=== PATIENT | female | born 1950 | race Caucasian/White ===

== ENCOUNTER 2020-12-19 20:30 | Inpatient (IN) | payer OTHER ==
--- NOTE | 2020-12-19 23:35 | RAD REPORT ---
EXAM DESCRIPTION: RAD - Chest Pa And Lat (2 Views) - 12/19/2020 9:34 pm CLINICAL HISTORY: DYSPNEA COMPARISON: None TECHNIQUE: Frontal and lateral views of the chest were obtained. FINDINGS: The lungs are normal volume. Interstitial markings are prominent, greater than expected. T here is some minimal alveolar opacification as well. Mild cardiomegaly is present. Fullness of each hilum noted. No pneumothorax present. Minimal pleural effusions suspected. No acute bony finding not ed. No aortic abnormality. IMPRESSION: Bilateral interstitial and some alveolar opacities are present in the setting of mild ca rdiomegaly. Mild failure or volume overload suspected.
[2020-12-20 01:18] LABS: Absolute Lymphocytes (CBC) 1.6 K/uL (0.7-4.9); Basophils % 1.6 % (0-1.3); Hematocrit 30.2 % (36.0-45.0); Lymphocytes % 26.3 % (15.3-44.8); MPV 8.3 fL (7.6-11.3); RBC Red Blood Cell Count 3.97 M/uL (3.86-4.86)
[2020-12-20 01:31] LABS: Protime INR 1.94
[2020-12-20 01:42] LABS: Albumin 3.3 g/dL (3.4-5.0); Bilirubin Direct 0.2 mg/dL (0-0.2); Bilirubin Total 0.5 mg/dL (0.2-1.0); Magnesium 2.4 mg/dL (1.8-2.4); Potassium 3.9 mmol/L (3.5-5.1); Protein, Total 7.6 g/dL (6.4-8.2); Troponin (Emerg Dept Use Only) 0.02 ng/mL (0.0-0.045)
--- NOTE | 2020-12-20 02:16 | ER ---
Nurse's Notes [facility] Name: Lila Lauren Age: 70 yrs Sex: Female : 1950 Arrival Date: 12/19/2020 Time: 20:39 Bed 25 Private MD: Diagnosis: Unspecified combined systolic (congestive) and diastolic (congestive) heart failure Presentation: 12/19 20:49 Chief complaint: Patient states: I have asthma, and I have been short of breath for 2 ca1 months now. But today, I just can't catch my breath. I can't walk to the kitchen, restroom even. I almost pass out today. I'm not wheezing like I normally do. As soon as I sit and put my CPAP on, I also feel better. Coronavirus screen: Client denies travel out of the [place] in the last 14 days. shortness of breath, Client presents with at least one sign or symptom that may indicate coronavirus-19. Standard/surgical mask placed on the client. Provider contacted for isolation considerations. Ebola Screen: Patient negative for fever greater than or equal to 101.5 degrees Fahrenheit, and additional compatible Ebola Virus Disease symptoms Patient denies exposure to infectious person. Patient denies travel to an Ebola-affected area in the 21 days before illness onset. No symptoms or risks identified at this time. Initial Sepsis Screen: Does the patient meet any 2 criteria? No. Patient's initial sepsis screen is negative. Does the patient have a suspected source of infection? No. Patient's initial sepsis screen is negative. Risk Assessment: Do you want to hurt yourself or someone else? Patient reports no desire to harm self or others. Onset of symptoms was December 19, 2020. 20:49 Method Of Arrival: Ambulatory ca1 20:49 Acuity: MARCUS 3 ca1 Historical: - Allergies: 20:52 No Known Allergies; ca1 - Home Meds: 20:52 None [Active]; ca1 - PMHx: 20:52 Lupus; Asthma; Gout; Hypertensive disorder; Hypercholesterolemia; Hypothyroidism; ca1 Atrial fibrillation; - Immunization history:: Client reports having NOT received the Covid vaccine. - Social history:: Smoking status: Patient denies any tobacco usage or history of. Screenin/06 00:45 Abuse screen: Denies threats or abuse. Nutritional screening: No deficits noted. bb Tuberculosis screening: No symptoms or risk factors identified. Fall Risk None identified. Assessment: 00:45 General: Appears in no apparent distress. obese, Behavior is calm, cooperative. Pain: bb Denies pain. Neuro: Level of Consciousness is awake, alert, obeys commands, Oriented to person, place, time, situation. Cardiovascular: Capillary refill < 3 seconds Patient's skin is warm and dry. Respiratory: Reports shortness of breath Respiratory effort is labored. GI: No signs and/or symptoms were reported involving the gastrointestinal system. Derm: Skin is fragile, is thin, Skin is dry, Skin is normal, Skin temperature is warm. Musculoskeletal: Circulation, motion, and sensation intact. Vital Signs: 12/19 20:49 BP 146 / 67; Pulse 61; Resp 18 S; Temp 97.6(TE); Pulse Ox 97% on R/A; Weight 130.18 kg ca1 (R); Height 5 ft. 3 in. (160.02 cm) (R); Pain 0/10; 12/20 00:41 BP 151 / 90; Pulse 60; Resp 20; Temp 97.7; Pulse Ox 99% on R/A; mw2 12/19 20:49 Body Mass Index 50.84 (130.18 kg, 160.02 cm) ca1 ED Course: 08 20:39 Patient arrived in ED. cf2 20:52 Triage completed. ca1 20:52 Arm band placed on right wrist. ca1 21:26 Chest Pa And Lat (2 Views) XRAY In Process Unspecified. EDMS 12/20 00:34 Kenneth Plaza MD is Attending Physician. 7 00:45 Patient has correct armband on for positive identification. Call light in reach. bb 00:45 No provider procedures requiring assistance completed. Patient admitted, IV remains in bb place. 02:04 Paradise Carvalho RN is Primary Nurse. bb 02:15 Omar Kim DO is Hospitalizing Provider. 7 02:30 Inserted saline lock: 20 gauge in left antecubital area, using aseptic technique. bb 10:29 Inserted saline lock: 24 gauge in left hand, using aseptic technique. mb4 Administered Medications: 02:30 Drug: Lasix (furosemide) 20 mg Route: IVP; Site: left antecubital; bb 02:44 Follow up: Response: No adverse reaction bb Outcome: 02:16 Decision to Hospitalize by Provider. 7 02:43 Condition: stable bb 02:43 Instructed on the need for admit. 17:10 Patient left the ED. iw Signatures: Dispatcher [employer] Paradise Navarro RN RN bb Rosey Webber RN RN iw Marii Arita mw2 Tricia Swartz mb4 Janny Walker RN RN ca1 Gabrielle Lee 2 Kenneth Plaza MD MD 7 Corrections: (The following items were deleted from the chart) 12/19 20:53 20:52 PMHx: Lupus erythematosus; ca1 ca1 12/20 03:03 00:45 Respiratory: Respiratory effort is even, unlabored, jody vera
--- NOTE | 2020-12-20 02:16 | EDPHYS ---
Physician Documentation [facility] Name: Lila Lauren Age: 70 yrs Sex: Female : 1950 Arrival Date: 12/19/2020 Time: 20:39 Bed 25 Private MD: ED Physician Kenneth Plaza HPI: 12/20 00:35 This 70 yrs old Female presents to ER via Ambulatory with complaints of mh7 Asthma Exacerbation. 00:35 The patient has shortness of breath with light activity. mh7 00:35 Onset: The symptoms/episode began/occurred 2 day(s) ago. Duration: The symptoms are mh7 intermittent, with no pattern. The patient's shortness of breath is aggravated by exertion, light activity. The patient's shortness of breath is alleviated by rest. Associated signs and symptoms: Pertinent positives: chest pain, productive cough, Pertinent negatives: non-productive cough, diaphoresis, dizziness, fever, hemoptysis, loss of consciousness, nausea, numbness in extremities, visual changes, vomiting. Severity of symptoms: At their worst the symptoms were moderate last night, in the emergency department the symptoms are unchanged. Historical: - Allergies: 12/19 20:52 No Known Allergies; ca1 - Home Meds: 20:52 None [Active]; ca1 - PMHx: 20:52 Lupus; Asthma; Gout; Hypertensive disorder; Hypercholesterolemia; Hypothyroidism; ca1 Atrial fibrillation; - Immunization history:: Client reports having NOT received the Covid vaccine. - Social history:: Smoking status: Patient denies any tobacco usage or history of. ROS: 12/20 00:35 Constitutional: Negative for fever, chills, and weight loss, Eyes: Negative for injury, mh7 pain, redness, and discharge, ENT: Negative for injury, pain, and discharge, Neck: Negative for injury, pain, and swelling, Abdomen/GI: Negative for abdominal pain, nausea, vomiting, diarrhea, and constipation, Back: Negative for injury and pain, : Negative for injury, bleeding, discharge, and swelling, MS/Extremity: Negative for injury and deformity, Skin: Negative for injury, rash, and discoloration, Neuro: Negative for headache, weakness, numbness, tingling, and seizure, Psych: Negative for depression, anxiety, suicide ideation, homicidal ideation, and hallucinations, Allergy/Immunology: Negative for hives, rash, and allergies, Endocrine: Negative for neck swelling, polydipsia, polyuria, polyphagia, and marked weight changes, Hematologic/Lymphatic: Negative for swollen nodes, abnormal bleeding, and unusual bruising. Exam: 00:35 Constitutional: This is a well developed, well nourished patient who is awake, alert, mh7 and in no acute distress. Head/Face: Normocephalic, atraumatic. Eyes: Pupils equal round and reactive to light, extra-ocular motions intact. Lids and lashes normal. Conjunctiva and sclera are non-icteric and not injected. Cornea within normal limits. Periorbital areas with no swelling, redness, or edema. Neck: Trachea midline, no thyromegaly or masses palpated, and no cervical lymphadenopathy. Supple, full range of motion without nuchal rigidity, or vertebral point tenderness. No Meningismus. Chest/axilla: Normal chest wall appearance and motion. Nontender with no deformity. No lesions are appreciated. Cardiovascular: Regular rate and rhythm with a normal S1 and S2. No gallops, murmurs, or rubs. Normal PMI, no JVD. No pulse deficits. 00:35 Abdomen/GI: Soft, non-tender, with normal bowel sounds. No distension or tympany. No guarding or rebound. No evidence of tenderness throughout. Back: No spinal tenderness. No costovertebral tenderness. Full range of motion. Skin: Warm, dry with normal turgor. Normal color with no rashes, no lesions, and no evidence of cellulitis. MS/ Extremity: Pulses equal, no cyanosis. Neurovascular intact. Full, normal range of motion. Neuro: Awake and alert, GCS 15, oriented to person, place, time, and situation. Cranial nerves II-XII grossly intact. Motor strength 5/5 in all extremities. Sensory grossly intact. Cerebellar exam normal. Normal gait. Psych: Awake, alert, with orientation to person, place and time. Behavior, mood, and affect are within normal limits. 00:35 Respiratory: the patient does not display signs of respiratory distress, Respirations: normal, Breath sounds: rales, that are mild, rhonchi, that are mild, are scattered, Respiratory rate: 20 Vital Signs: 12/19 20:49 BP 146 / 67; Pulse 61; Resp 18 S; Temp 97.6(TE); Pulse Ox 97% on R/A; Weight 130.18 kg ca1 (R); Height 5 ft. 3 in. (160.02 cm) (R); Pain 0/10; 12/20 00:41 BP 151 / 90; Pulse 60; Resp 20; Temp 97.7; Pulse Ox 99% on R/A; mw2 12/19 20:49 Body Mass Index 50.84 (130.18 kg, 160.02 cm) ca1 MDM: 02:14 Differential diagnosis: Anemia Anxiety Reaction asthma, Bronchitis CHF exacerbation, mh7 Chronic Obstructive Pulmonary Disease Myocardial Infarction pneumonia, Psychogenic pulmonary edema, reactive airway disease. Data reviewed: vital signs, nurses notes, EMS record, lab test result(s), cardiac enzymes, CBC, electrolytes, EKG, radiologic studies, plain films. Data interpreted: Pulse oximetry: on room air is 99 %. Interpretation: normal. Counseling: I had a detailed discussion with the patient and/or guardian regarding: the historical points, exam findings, and any diagnostic results supporting the discharge/admit diagnosis, the presence of at least one elevated blood pressure reading (>120/80) during this emergency department visit, lab results, radiology results, the need for further work-up and treatment in the hospital. Response to treatment: the patient's symptoms have mildly improved after treatment. 02:16 Patient medically screened. [facility] 12/19 20:54 Order name: Flu; Complete Time: 00:36 ca1 12/19 22:49 Order name: SARS-COV-2 RT PCR; Complete Time: 00:36 EDMS 12/20 00:46 Order name: Basic Metabolic Panel; Complete Time: 01:54 [facility] 12/20 00:46 Order name: CBC with Diff; Complete Time: 01:54 [facility] 12/20 00:46 Order name: LFT's; Complete Time: 01:54 [facility] 12/20 00:46 Order name: Magnesium; Complete Time: :54 [facility] 12/20 00:46 Order name: NT PRO-BNP; Complete Time: 01:44 [facility] 12/20 00:46 Order name: PT-INR; Complete Time: 01:54 [facility] 12/20 00:46 Order name: Troponin (emerg Dept Use Only); Complete Time: 01:54 [facility] 12/20 04:51 Order name: Urine Dipstick-Ancillary [facility] 12/20 09:59 Order name: Troponin I [facility] 12/20 09:59 Order name: Lipid Profile [facility] 12/20 09:59 Order name: T4 Free [facility] 12/19 20:54 Order name: Chest Pa And Lat (2 Views) XRAY; Complete Time: 00:36 ca1 12/20 00:46 Order name: EKG; Complete Time: 00:47 [facility] 12/20 00:46 Order name: Cardiac monitoring; Complete Time: 04:51 [facility] 12/20 00:46 Order name: EKG - Nurse/Tech; Complete Time: 02:02 [facility] 12/20 00:46 Order name: IV Saline Lock; Complete Time: 02:05 [facility] 12/20 00:46 Order name: Labs collected and sent; Complete Time: 02:05 [facility] 12/20 00:46 Order name: O2 Per Protocol; Complete Time: 00:55 [facility] 12/20 00:46 Order name: O2 Sat Monitoring; Complete Time: 00:55 [facility] 12/20 09:59 Order name: Thyroid Stimulating Hormone [facility] 12/20 09:59 Order name: Transferrin Sat/Iron Binding [facility] 12/20 09:59 Order name: Ferritin [facility] 12/20 14:12 Order name: Troponin I [facility] Administered Medications: 02:30 Drug: Lasix (furosemide) 20 mg Route: IVP; Site: left antecubital; bb 02:44 Follow up: Response: No adverse reaction bb Disposition Summary: 12/20/20 02:16 Hospitalization Ordered Hospitalization Status: Inpatient Admission [facility] Provider: Omar Kim Fely Condition: Stable [facility] Problem: new [facility] Symptoms: have improved [facility] Bed/Room Type: Standard [facility] Location: Telemetry/MedSurg (Inpatient)(12/20/20 13:57) aa5 Room Assignment: 222(12/20/20 13:57) aa5 Diagnosis - Unspecified combined systolic (congestive) and diastolic (congestive) heart failure [facility] Forms: - Medication Reconciliation Form [facility] - SBAR form [facility] Signatures: Dispatcher [employer] [facility] Paradise Carvalho RN RN bb Mary Eric RN RN aa5 Jules Mathew, COUNTER MOLDER-C COUNTER MOLDER-Cla1 Amina Araujo RN RN cg Janny Walker RN RN ca1 Kenneth Plaza MD MD [facility] Corrections: (The following items were deleted from the chart) 12/19 20:53 20:52 PMHx: Lupus erythematosus; ca1 ca1 21:52 20:55 CORONAVIRUS+MRCHAR.BRZ ordered. EDMS [facility] 12/20 01:05 01:02 The patient has shortness of breath with light activity, [place] [id number] 01:05 01:02 Onset: The symptoms/episode began/occurred 2 day(s) ago, [place] [address] 01:05 01:02 Duration: The symptoms are intermittent, with no pattern, [place] [address] 01:05 01:02 The patient's shortness of breath is aggravated by exertion, light activity, is [facility] alleviated by sitting up, [facility] 04:23 02:16 Telemetry/MedSurg (Inpatient) [facility] cg 04:23 02:16 [facility] cg 13:57 04:23 [facility] ER HOLD cg aa5 13:57 04:23 ERHOLD- cg aa5
[2020-12-20] MEDS ORDERED: FUROSEMIDE 20 MG/ 2ML VIAL ONE ×2 (02:44→10:26)
--- NOTE | 2020-12-20 03:08 | P.HP ---
Certification for Inpatient Patient admitted to: Observation With expected LOS: <2 Midnights Patient will require the following post-hospital care: None Practitioner: I am a practitioner with admitting privileges, knowledge of patient current condition, hospital course, and medical plan of care. Services: Services provided to patient in accordance with Admission requirements found in Title 42 Section 412.3 of the Code of Federal Regulations Patient History Date of Service: 12/20/20 Primary Care Provider: None Reason for admission: New onset CHF History of Present Illness: 70-year-old female with history of atrial fibrillation on chronic anticoagulation therapy, lupus, hypothyroidism, hypertension, hyperlipidemia, asthma/obstructive sleep apnea presents emergency [place] for dyspnea on exertion. Patient reports increasing dyspnea on exertion over the course of the last month or so. Patient was examined in the emergency department, labs were significant for hemoglobin 9.4 hematocrit 30.2 MCV 76.1 BUN 19 GFR 45 alk phos 184 BNP 2867 Covid test negative chest x-ray significant for mild CHF pattern. Patient without previously diagnosed CHF. Patient given Lasix in the emergency department ED provider wishes to admit for further evaluation and management of new onset CHF. - Past Medical/Surgical History -: Atrial fibrillation on chronic anticoagulation therapy -: Hypertension -: Hyperlipidemia -: Lupus -: Asthma/BENNIE -: Bilateral hip/knee surgery -: Elbow surgery -: Bilateral cataract surgery -: Cholecystectomy Psychosocial/ Personal History: Patient lives at home alone, retired - Family History Mother -: Hypertension Brother -: Heart disease - Social History Smoking Status: Never smoker Alcohol use: No CD- Drugs: No Caffeine use: Yes Place of Residence: Home Review of Systems 10-point ROS is otherwise unremarkable Respiratory: Cough, Shortness of Breath, SOB with Excertion Physical Examination - Physical Exam General: Alert, In no apparent distress, Oriented x3 HEENT: Atraumatic, PERRLA, EOMI Neck: Supple, 2+ carotid pulse no bruit, No LAD, Without JVD or thyroid abnormality Respiratory: Clear to auscultation bilaterally, Normal air movement, Crackles/rales Cardiovascular: Regular rate/rhythm, Normal S1 S2 Gastrointestinal: Normal bowel sounds, No tenderness Musculoskeletal: No tenderness Integumentary: No rashes Neurological: Normal speech, Normal strength at 5/5 x4 extr, Normal tone, Normal affect - Studies Laboratory Data (last 24 hrs) 12/20/20 01:03: PT 22.5 H, INR 1.94 12/20/20 01:03: WBC 6.00, Hgb 9.4 L, Hct 30.2 L, Plt Count 203 12/20/20 01:03: Sodium 140, Potassium 3.9, BUN 19 H, Creatinine 1.19, Glucose 90, Magnesium 2.4, Total Bilirubin 0.5, AST 25, ALT 25, Alkaline Phosphatase 184 H Microbiology Data (last 24 hrs): 12/19/20 20:54 Nasopharnyx Influenza Type A Antigen Screen - Final 12/19/20 20:54 Nasopharnyx Influenza Type B Antigen Screen - Final Assessment and Plan - Plan Assessment: Dyspnea secondary to new onset CHFunknown EF Atrial fibrillation on chronic evaluation therapy Hypertension Hyperlipidemia Hypothyroidism Asthma/BENNIE Lupus Plan: Dyspnea secondary to new onset CHFunknown EF: Continue with Lasix 20 mg IV twice daily, 1500 cc/day flu restriction, daily weights. Echocardiogram ordered cardiology consulted. Anticipate clinical improvement over the course of the next 24 to 48 hours. Patient without primary care doctor, will need recommendation for new PCP/cardiology on discharge. Atrial fibrillation on chronic evaluation therapy: Continue Eliquis, carvedilol. Monitor on telemetry. Stable. Hypertension: Home medications continued adjust as necessary Hyperlipidemia: Home medications continued adjust as necessary Hypothyroidism:Home medications continued adjust as necessary Asthma/BENNIE: Stable without expiratory wheezing at this time. Patient reports that she does use CPAP at home for sleep. Lupus: Currently off of her medications. DVT PPX: Continue Eliquis Code status: Full Discharge Plan: Home Plan to discharge in: 24 Hours - Advance Directives Does patient have a Living Will: No Does patient have a Durable POA for Healthcare: No - Code Status/Comfort Care Code Status Assessed: Yes (Full code) Critical Care: No Time Spent Managing Pts Care (In Minutes): 55
[2020-12-20 04:50] LABS: Urine Blood Negative (Negative); Urine Glucose Negative (Negative); Urine Protein Negative (Negative); Urine Specific Gravity 1.015 (1.005-1.030)
--- NOTE | 2020-12-20 06:27 | P.PN ---
Subjective Date of Service: 12/20/20 Primary Care Provider: None Chief Complaint: New onset CHF Subjective: Other (Patient stable. Currently on 4 L per nasal cannula) Physical Examination - Studies Laboratory Data (last 24 hrs) 12/20/20 01:03: PT 22.5 H, INR 1.94 12/20/20 01:03: WBC 6.00, Hgb 9.4 L, Hct 30.2 L, Plt Count 203 12/20/20 01:03: Sodium 140, Potassium 3.9, BUN 19 H, Creatinine 1.19, Glucose 90, Magnesium 2.4, Total Bilirubin 0.5, AST 25, ALT 25, Alkaline Phosphatase 184 H Microbiology Data (last 24 hrs): 12/19/20 20:54 Nasopharnyx Influenza Type A Antigen Screen - Final 12/19/20 20:54 Nasopharnyx Influenza Type B Antigen Screen - Final Assessment & Plan Discharge Plan: Home (With home health and physical therapy) Plan to discharge in: 48 Hours Physician Review Additional Text: Covid: Negative Initial Chest x-ray: COMPARISON: None TECHNIQUE: Frontal and lateral views of the chest were obtained. FINDINGS: The lungs are normal volume. Interstitial markings are prominent, greater than expected. There is some minimal alveolar opacification as well. Mild cardiomegaly is present. Fullness of each hilum noted. No pneumothorax present. Minimal pleural effusions suspected. No acute bony finding noted. No aortic abnormality. IMPRESSION: Bilateral interstitial and some alveolar opacities are present in the setting of mild cardiomegaly. Mild failure or volume overload suspected. Physical exam: General: Alert, In no apparent distress, Oriented x3 HEENT: Atraumatic, PERRLA, EOMI Neck: Supple, 2+ carotid pulse no bruit, No LAD, Without JVD or thyroid abnormality Respiratory: Decreased to the bases. Currently on 4 L per nasal cannula Cardiovascular: Regular rate/rhythm, Normal S1 S2 Gastrointestinal: Normal bowel sounds, No tenderness Musculoskeletal: No tenderness Integumentary: No rashes Neurological: Normal speech, Normal strength at 5/5 x4 extr, Normal tone, Normal affect Impression: Dyspnea secondary to new onset acute CHFunknown EF Atrial fibrillation on chronic evaluation therapy Hypertension Hyperlipidemia Hypothyroidism Asthma/BENNIE Lupus Plan: Dyspnea secondary to new onset acute CHFunknown EF: Will continue with Lasix 20 mg IV twice daily. Continue 1500 cc/day fluid restriction. Continue carvedilol. Will adjust medication. Will add lisinopril. Echocardiogram ordered. Case discussed with cardiology. Continue with current treatment plan. Likely home with home oxygen tomorrow. Will check to see if the patient will require home health and physical therapy at discharge. Patient needs a PCP in the area. Will consult social service to help with this. Atrial fibrillation on chronic evaluation therapy: Continue Eliquis. Will adjust carvedilol to twice daily. Hypertension: Continue carvedilol. Will add lisinopril Hyperlipidemia: Continue medication Hypothyroidism: Continue home medication Asthma/BENNIE: Stable without expiratory wheezing at this time. Patient reports that she does use CPAP at home for sleep. Lupus: Currently off of her medications. DVT PPX: Continue Eliquis Code status: Full Discharge Plan: Home with oxygen Time Spent Managing Pts Care (In Minutes): 55
[2020-12-20] MEDS ORDERED: ACETAMINOPHEN 500 MG TAB PO PRN (07:03)
[2020-12-20] MEDS ORDERED: ONDANSETRON 4 MG/2 ML VIAL IV PRN (07:03)
[2020-12-20] MEDS ORDERED: carvediloL 25 MG TAB PO SCH ×2 (07:03→21:00)
[2020-12-20 09:59] LABS: Ferritin 17.8 ng/mL (8-388); Thyroid Stimulating Hormone 1.45 uIU/mL (0.360-3.740); Troponin I 0.02 ng/mL (0.0-0.045)
[2020-12-20] MEDS: FUROSEMIDE 20 MG/ 2ML VIAL IV SCH ×2 (10:06→20:00)
[2020-12-20] MEDS: ASPIRIN EC 81 MG TAB PO SCH (10:07)
[2020-12-20] MEDS: APIXABAN 5 MG TABLET PO SCH ×2 (10:07→21:17)
[2020-12-20] MEDS: PANTOPRAZOLE 40MG TABLET PO SCH (10:07)
[2020-12-20] MEDS: ISOSORBIDE MONO SR 30 MG TAB PO SCH (10:09)
[2020-12-20] MEDS ORDERED: PANTOPRAZOLE 40MG TABLET PO ONE (10:26)
[2020-12-20] MEDS ORDERED: APIXABAN 5 MG TABLET ONE (10:27)
[2020-12-20] MEDS ORDERED: ASPIRIN EC 81 MG TAB PO ONE (10:27)
--- NOTE | 2020-12-20 10:49 | EKG ---
Test Date: 2020-12-20 Test Time: 01:25:18 Vice President Of Product Marketing: CLEMENT MEASUREMENT RESULTS: Intervals: Rate: 60 LA: QRSD: 138 QT: 496 QTc: 496 [place]: P: 91 LA: QRS: -47 T: 96 INTERPRETIVE STATEMENTS: Atrial flutter with 4:1 AV conduction Right bundle branch block Left anterior fascicular block Bifascicular block Left ventricular hypertrophy with repolarization abnormality Abnormal ECG No previous ECG available for comparison Electronically Signed On 12-20-20 10:48:06 CDT by Shimon Nguyen
[2020-12-20] MEDS: allopurinoL 100 MG TAB PO SCH (12:00)
[2020-12-20] MEDS: carvediloL 25 MG TAB PO SCH ×2 (20:00→21:17)
[2020-12-20] MEDS: DULOXETINE 30 MG CAP PO SCH (21:17)
[2020-12-21 05:45] LABS: Absolute Lymphocytes (CBC) 1.3 K/uL (0.7-4.9); Basophils % 1.8 % (0-1.3); Hematocrit 27.6 % (36.0-45.0); Lymphocytes % 26.5 % (15.3-44.8); MPV 8.1 fL (7.6-11.3)
[2020-12-21 06:02] LABS: Albumin 2.9 g/dL (3.4-5.0); Bilirubin Total 0.4 mg/dL (0.2-1.0); Potassium 3.8 mmol/L (3.5-5.1); Protein, Total 6.7 g/dL (6.4-8.2)
[2020-12-21] MEDS: PANTOPRAZOLE 40MG TABLET PO SCH ×2 (06:28→09:04)
[2020-12-21] MEDS: LEVOTHYROXINE SOD 0.075 MG TAB PO SCH ×2 (06:28→09:03)
[2020-12-21] MEDS ORDERED: LEVOTHYROXINE SOD 0.125 MG TAB PO SCH (06:30)
[2020-12-21 06:39] VITALS: BMI 45.8
--- NOTE | 2020-12-21 08:43 | RAD REPORT ---
EXAM DESCRIPTION: RAD - Chest Single View - 12/21/2020 6:38 am CLINICAL HISTORY: Follow-up CHF COMPARISON: Chest Pa And Lat (2 Views) dated 12/19/2020 FINDINGS: Diffuse prominence of the pulmonary interstitium. This is increased since 12/19/2020. Card iomegaly.No acute osseous abnormality. No significant pleural effusions or pneumothorax. IMPRESSION: Mild pulmonary edema which is increased since 12/19/2020.
[2020-12-21] MEDS ORDERED: lisinopriL 5 MG TAB PO SCH (09:00)
[2020-12-21] MEDS ORDERED: HOME MED 1 EA UNK (Omeprazole [Prilosec] 40 MG Capsule.Dr) PO SCH (09:00)
[2020-12-21] MEDS ORDERED: POTASSIUM CL SA 10 MEQ TAB PO ONE (09:00)
[2020-12-21] MEDS: carvediloL 25 MG TAB PO SCH (09:01)
[2020-12-21] MEDS: ASPIRIN EC 81 MG TAB PO SCH (09:01)
[2020-12-21] MEDS: DULOXETINE 30 MG CAP PO SCH (09:02)
[2020-12-21] MEDS: APIXABAN 5 MG TABLET PO SCH (09:02)
[2020-12-21] MEDS: FUROSEMIDE 20 MG/ 2ML VIAL IV SCH (09:03)
[2020-12-21] MEDS: allopurinoL 100 MG TAB PO SCH (09:03)
[2020-12-21] MEDS: ISOSORBIDE MONO SR 30 MG TAB PO SCH (09:03)
--- NOTE | 2020-12-21 10:56 | P.DS ---
Admission Date: 12/20/20 Discharge Date: 12/21/20 Primary Care Provider: New to the area Disposition: ROUTINE DISCHARGE Discharge Condition: GOOD Reason for Admission: New onset CHF Consultations: Cardiology-Dr. Nguyen Procedures: Covid: Negative Initial Chest x-ray: COMPARISON: None TECHNIQUE: Frontal and lateral views of the chest were obtained. FINDINGS: The lungs are normal volume. Interstitial markings are prominent, greater than expected. There is some minimal alveolar opacification as well. Mild cardiomegaly is present. Fullness of each hilum noted. No pneumothorax present. Minimal pleural effusions suspected. No acute bony finding noted. No aortic abnormality. IMPRESSION: Bilateral interstitial and some alveolar opacities are present in the setting of mild cardiomegaly. Mild failure or volume overload suspected. ECHO: Normal EF, aortic stenosis noted. Medical problem list: Hypoxia, dyspnea secondary to acute diastolic CHF with aortic stenosis Atrial fibrillation on chronic evaluation therapy Hypertension Hypothyroidism Asthma Obstructive sleep apnea Lupus Anemia of chronic disease with iron deficiency GERD Gout Brief History of Present Illness: 70-year-old female with history of atrial fibrillation on chronic anticoagulation therapy, lupus, hypothyroidism, hypertension, hyperlipidemia, asthma/obstructive sleep apnea presented to the emergency room with dyspnea with exertion. Patient found to be hypoxic. BNP elevated. Covid test negative. Chest x-ray showed CHF pattern. Patient started on Lasix. Patient admitted for further evaluation and treatment. Hospital Course: Patient presented with hypoxia, dyspnea secondary to acute diastolic CHF. Patient was admitted for treatment. Patient responded well to IV Lasix and fluid restriction. Patient was seen and evaluated by cardiology. Echocardiogram shows normal ejection fraction with some aortic stenosis. Patient has done well. At discharge patient without significant shortness of breath. Patient remains on oxygen. Patient will continue with oxygen to maintain sats above 93%. Patient currently on 1 L per nasal cannula. At discharge the patient will continue with a 1500 cc/day fluid restriction and low-salt diet. She is to monitor her weight daily. At discharge she will continue with Lasix 40 mg daily. If her weight increases by more than 5 pounds adjustments in her medication may be required. This can be done with the help of her PCP or suspender maker. Patient will also continue with carvedilol 25 mg 1 pill twice daily. New medication includes lisinopril 5 mg daily. Recommend follow-up with cardiology in 1 week to follow-up this hospitalization and continue her care. Patient plans to establish care with a PCP in the area to follow-up this hospitalization and further address her medical problems. to recheck labBMP in 1 week to monitor her progress. Patient with history of atrial fibrillation on chronic anticoagulation therapy and CAD. At discharge she will continue with aspirin 81 mg daily, Imdur 15 mg daily and Eliquis 5 mg 1 pill twice daily. Recommend to follow-up with cardiology as directed. Patient with hypertension. Blood pressure medications have been adjusted during the course of her stay. New medication includes lisinopril. At discharge she will continue with carvedilol 25 mg 1 pill twice daily and lisinopril 5 mg daily. Recommend to maintain blood pressure less than 130/80. Further dismay can be done by her PCP or cardiology. Patient with hypothyroidism. At discharge she will continue with her medication levothyroxine 150 mcg daily. Recommend to recheck TSH and free T4 in 6 to 8 weeks to monitor her progress. Patient with GERD. At discharge she will continue with Protonix 40 mg daily. This will replace Prilosec. Recommend GI evaluation as an outpatient especially in light of her anemia. Patient with lupus. Recommend to establish care with rheumatology in the area to further address. We will continue with her medications of Cymbalta 30 mg 1 pill twice daily Patient with obstructive sleep apnea. Patient will continue with CPAP at night. Patient with anemia chronic disease with iron deficiency anemia. At discharge she will continue with iron supplementation 325 mg 1 pill twice daily. She may continue with stool softener as needed. Recommend to recheck labCBC in 1 to 2 weeks to monitor her progress. Recommend GI evaluation as an outpatient to further address. Patient with history of gout. At discharge we will continue with allopurinol 100 mg daily. Vital Signs/Physical Exam: Temp Pulse Resp BP Pulse Ox 98.9 F 83 16 105/57 L 94 12/21/20 08:00 12/21/20 08:00 12/21/20 08:00 12/21/20 08:00 12/21/20 08:00 General: Alert, In no apparent distress, Oriented x3, Cooperative HEENT: Atraumatic Neck: Supple Respiratory: Clear to auscultation bilaterally, Normal air movement Cardiovascular: Normal pulses, Regular rate/rhythm Gastrointestinal: Normal bowel sounds, No tenderness, No masses, No rebound, No guarding Musculoskeletal: No erythema, No tenderness, No warmth Integumentary: No tenderness/swelling Neurological: Normal speech, Normal strength at 5/5 x4 extr, Normal tone, Normal affect Laboratory Data at Discharge: WBC 4.80 K/uL (4.3-10.9) D 12/21/20 05:33 Hgb 8.4 g/dL (12.0-15.0) L 12/21/20 05:33 Hct 27.6 % (36.0-45.0) L 12/21/20 05:33 Plt Count 175 K/uL (152-406) 12/21/20 05:33 PT 22.5 SECONDS (9.5-12.5) H 12/20/20 01:03 INR 1.94 12/20/20 01:03 Sodium 143 mmol/L (136-145) 12/21/20 05:33 Potassium 3.8 mmol/L (3.5-5.1) 12/21/20 05:33 BUN 21 mg/dL (7-18) H 12/21/20 05:33 Creatinine 1.13 mg/dL (0.55-1.3) 12/21/20 05:33 Glucose 88 mg/dL (74-106) 12/21/20 05:33 Magnesium 2.0 mg/dL (1.8-2.4) 12/21/20 05:33 Total Bilirubin 0.4 mg/dL (0.2-1.0) 12/21/20 05:33 AST 20 U/L (15-37) 12/21/20 05:33 ALT 22 U/L (12-78) 12/21/20 05:33 Alkaline Phosphatase 151 U/L (45-117) H 12/21/20 05:33 Troponin I 0.03 ng/mL (0.0-0.045) 12/20/20 13:30 Triglycerides 70 mg/dL (<150) 12/20/20 08:47 Cholesterol 144 mg/dL (<200) 12/20/20 08:47 HDL Cholesterol 51 mg/dL (40-60) 12/20/20 08:47 Cholesterol/HDL Ratio 2.82 12/20/20 08:47 Home Medications: Albuterol Neb [Proventil 0.083% Neb Soln] 2.5 mg IH Q8H PRN 12/20/20 Allopurinol 100 mg PO DAILY 12/20/20 Apixaban [Eliquis] 1 tab PO BID 12/20/20 Aspirin [Aspirin EC 81 MG] 1 tab PO DAILY 12/20/20 Carvedilol [Coreg] 25 mg PO BID 12/20/20 Duloxetine HCl 1 cap PO BID 12/20/20 Isosorbide Mononitrate [Isosorbide Mononitrate ER] 0.5 tab PO DAILY 12/20/20 Levothyroxine [Synthroid*] 150 mcg PO [id number] 12/20/20 Ferrous Sulfate [Ferrous Sulfate*] 325 mg PO BID #60 tab 12/21/20 Furosemide [Lasix] 40 mg PO DAILY #30 tab 12/21/20 Pantoprazole [Protonix Tab*] 40 mg PO DAILYAC #30 tab 12/21/20 lisinopriL [Prinivil*] 5 mg PO DAILY #30 tab 12/21/20 New Medications: Ferrous Sulfate [Ferrous Sulfate*] 325 mg PO BID #60 tab Furosemide [Lasix] 40 mg PO DAILY #30 tab lisinopriL [Prinivil*] 5 mg PO DAILY #30 tab Pantoprazole [Protonix Tab*] 40 mg PO DAILYAC #30 tab Physician Discharge Instructions: Patient presented with hypoxia, dyspnea secondary to acute diastolic CHF. Patient was admitted for treatment. Patient responded well to IV Lasix and fluid restriction. Patient was seen and evaluated by cardiology. Echocardiogram shows normal ejection fraction with some aortic stenosis. Patient has done well. At discharge patient without significant shortness of breath. Patient remains on oxygen. Patient will continue with oxygen to maintain sats above 93%. Patient currently on 1 L per nasal cannula. At discharge the patient will continue with a 1500 cc/day fluid restriction and low-salt diet. She is to monitor her weight daily. At discharge she will continue with Lasix 40 mg daily. If her weight increases by more than 5 pounds adjustments in her medication may be required. This can be done with the help of her PCP or suspender maker. Patient will also continue with carvedilol 25 mg 1 pill twice daily. New medication includes lisinopril 5 mg daily. Recommend follow-up with cardiology in 1 week to follow-up this hospitalization and continue her care. Patient plans to establish care with a PCP in the area to follow-up this hospitalization and further address her medical problems. to recheck labBMP in 1 week to monitor her progress. Patient with history of atrial fibrillation on chronic anticoagulation therapy and CAD. At discharge she will continue with aspirin 81 mg daily, Imdur 15 mg daily and Eliquis 5 mg 1 pill twice daily. Recommend to follow-up with cardiocedric pruitt as directed. Patient with hypertension. Blood pressure medications have been adjusted during the course of her stay. New medication includes lisinopril. At discharge she will continue with carvedilol 25 mg 1 pill twice daily and lisinopril 5 mg daily. Recommend to maintain blood pressure less than 130/80. Further dismay can be done by her PCP or cardiology. Patient with hypothyroidism. At discharge she will continue with her medication levothyroxine 150 mcg daily. Recommend to recheck TSH and free T4 in 6 to 8 weeks to monitor her progress. Patient with GERD. At discharge she will continue with Protonix 40 mg daily. This will replace Prilosec. Recommend GI evaluation as an outpatient especially in light of her anemia. Patient with lupus. Recommend to establish care with rheumatology in the area to further address. We will continue with her medications of Cymbalta 30 mg 1 pill twice daily Patient with obstructive sleep apnea. Patient will continue with CPAP at night. Patient with anemia chronic disease with iron deficiency anemia. At discharge she will continue with iron supplementation 325 mg 1 pill twice daily. She may continue with stool softener as needed. Recommend to recheck labCBC in 1 to 2 weeks to monitor her progress. Recommend GI evaluation as an outpatient to further address. Patient with history of gout. At discharge we will continue with allopurinol 100 mg daily. Diet: AHA Activity: Ad len Followup: NONE,NONE [Primary Care Provider] - Time spent managing pt's care (in minutes): 55
[2020-12-21 12:00] VITALS: O2SAT 94
[2020-12-21 13:10] VITALS: BP 145/52; TEMP 97
[2020-12-21] MEDS ORDERED: FERROUS SULFATE 325 MG TAB PO SCH (21:00)
[2020-12-22] MEDS ORDERED: DOCUSATE NA 100 MG CAP PO SCH (09:00)
--- NOTE | 2020-12-22 09:36 | CON ---
Reason For Consultation: Congestive heart failure. History Of Present Illness: Ms. Lauren is a 70-year-old woman who came in with shortness of breath. Symptoms have been going on for a few days. She had atypical chest pain. She had a productive coug h. No nausea, vomiting, diaphoresis, PND, orthopnea, pedal edema, palpitations, or syncope. She den ied any fever or chills. Allergies: NONE. Medications At Home: None. Past Medical History: Includes lupus, asthma, gout, hypertension, hyperlipidemia, hypothyroidism, an d paroxysmal atrial fibrillation. Review of Systems: Negative. Social History: Negative. Family History: Negative. Physical Examination: Vital Signs: She was in sinus rhythm. O2 saturation was 97% on room air. Blood pressure was 146/67 . HEENT: Negative. Neck: Supple without any bruit, lymphadenopathy, JVD, or thyromegaly. Chest: Clear to auscultation and percussion. Cardiac: Revealed a regular rhythm and rate. No murmurs, gallops, or rubs. Abdomen: Benign. Extremities: Revealed no clubbing, cyanosis, or edema. Diagnostic Data: EKG showed atrial flutter with right bundle-branch block. Chest x-ray showed mild congestive heart failure. Her laboratory evaluation was basically positive for anemia with a hemoglo bin of 9.4. Her BNP was slightly elevated at 2867. She had a normal troponin. Impression And Plan: 1.Atrial flutter. The patient should be on a beta-jose a and Eliquis 5 mg b.i.d. for now. I think she should have an echocardiogram done. 2.Acute on chronic diastolic congestive heart failure. She should be on Lasix and JONATHAN inhibitor. 3.Hypothyroidism. 4.Gastroesophageal reflux disease, on pantoprazole. 5.Gout. 6.Hypertension, well controlled. I will continue her present regimen. Diurese her. She can go home whenever it is okay with Dr. Nick stubbs. I will see her in the office in the near future. As earlier stated she should be on beta-blocke r, lisinopril, Eliquis, aspirin, Lasix. NB/MODL Voice ID: [id number] Report ID: [id number]
--- NOTE | 2020-12-23 08:27 | ECHO ---
HEIGHT: 5 ft 3 in WEIGHT: 258 lb 9.6 oz DATE OF STUDY: 12/20/[address]: Jules Mathew NP 2-DIMENSIONAL: YES M.MODE: YES DOPPLER: YES COLOR FLOW: YES TDS: PORTABLE: DEFINITY: BUBBLE STUDY: DIAGNOSIS: CONGESTIVE HEART FAILURE CARDIAC HISTORY: CATHERIZATION: SURGERY: PROSTHETIC VALVE: PACEMAKER: MEASUREMENTS (cm) DIASTOLIC (NORMALS) SYSTOLIC (NORMALS) IVSd 1.2 (0.6-1.2) LA Diam 3.8 (1.9-4.0) LVEF 77% LVIDd 4.6 (3.5-5.7) LVIDs 2.5 (2.0-3.5) %FS 45% LVPWd 1.3 (0.6-1.2) Ao Diam 2.7 (2.0-3.7) 2 DIMENSIONAL ASSESSMENT: RIGHT ATRIUM: NORMAL LEFT ATRIUM: NORMAL RIGHT VENTRICLE: NORMAL LEFT VENTRICLE: NORMAL TRICUSPID VALVE: NORMAL MITRAL VALVE: MITRAL ANNULAR CALCIFICATION PULMONIC VALVE: NORMAL AORTIC VALVE: NORMAL PERICARDIAL EFFUSION: NONE AORTIC ROOT: NORMAL LEFT VENTRICULAR WALL MOTION: NORMAL DOPPLER/COLOR FLOW: NORMAL COMMENTS: MITRAL ANNULAR CALCIFICATION. NORMAL LEFT VENTRICULAR SIZE AND FUNCTION. NO WALL MOTION ABNORMALITY. NO EFFUSION. TECHNOLOGIST: LORENZA MCNEAL
== END 2020-12-21 15:34 | disposition home or self-care (01) | DRG 291 ==
LOC: ER 20:30 → ERHOLD 12-20 02:36 → OBSVTOIN 12-20 12:03 → 2ND 12-20 17:04
PROVIDERS: ADMIT Family Medicine; ATTEND Family Medicine
PROC: 5A09357 Assistance with Respiratory Ventilation, Less than 24 Consecutive Hours, Continuous Positive Airway Pressure (ICD-10-PCS; principal; 2020-12-20)
DX: I11.0 Hypertensive heart disease with heart failure (principal); I50.31 Acute diastolic (congestive) heart failure; I48.92 Unspecified atrial flutter; J45.909 Unspecified asthma, uncomplicated; I48.91 Unspecified atrial fibrillation; D50.9 Iron deficiency anemia, unspecified; E78.5 Hyperlipidemia, unspecified; E03.9 Hypothyroidism, unspecified; G47.33 Obstructive sleep apnea (adult) (pediatric); I35.0 Nonrheumatic aortic (valve) stenosis; M32.9 Systemic lupus erythematosus, unspecified; K21.9 Gastro-esophageal reflux disease without esophagitis; M10.9 Gout, unspecified; Z60.2 Problems related to living alone; Z79.01 Long term (current) use of anticoagulants; Z79.890 Hormone replacement therapy; Z79.899 Other long term (current) drug therapy; Z20.822 Contact with and (suspected) exposure to COVID-19
CPT/HCPCS: 36415; 71045; 71046; 80048; 80053; 80061; 80076; 81003; 82728; 83540; 83735; 83880; 84439; 84443; 84466; 84484; 85025; 85610; 87804; 93005; 93306; 94660; 96374; 99283; J1940; U0003

== ENCOUNTER 2023-08-16 08:08 | Day surgery (SDC) | payer OTHER ==
--- NOTE | 2023-08-04 15:06 | RAD REPORT ---
EXAM DESCRIPTION: Camilla Nagel And Noah (2 Views)08/04/2023 2:57 pm CLINICAL HISTORY: Preop cardiac catheterization COMPARISON: 2020 FINDINGS: Lungs are mildly hyperaerated. The The lungs appear clear of acute infiltrate. The heart is mildly to moderately enlarged There appears to be a chronic dislocation right shoulder IMPRESSION: No acute abnormalities displayed
[2023-08-04 15:18] LABS: Absolute Basophils 0.1 K/uL (0-0.5); Absolute Eosinophils 0.5 K/uL (0-0.5); Absolute Lymphocytes (CBC) 1.9 K/uL (0.7-4.9); Absolute Monocytes 0.8 K/uL (0.1-1.3); Absolute Neutrophil 5.7 K/uL (1.8-8.0); Basophils % 1.4 % (0-1.3); Eosinophils % 5.7 % (0-4.4); Hematocrit 37.4 % (36.0-45.0); Hemoglobin 12.5 g/dL (12.0-15.0); Lymphocytes % 21.2 % (15.3-44.8); MCH 32.6 pg (27.0-35.0); MCHC 33.5 g/dL (32.0-36.0); MCV 97.4 fL (80-100); MPV 9.4 fL (7.6-11.3); Monocytes % 9.2 % (3.3-12.3); Neutrophils % 62.5 % (41.7-73.7); Nucleated Red Blood Cells % 0.1 % (0-0); Platelets 213 thou/uL (152-406); RBC Red Blood Cell Count 3.84 M/uL (3.86-4.86); Red Cell Distribution Width 15.1 % (12.1-15.2)
[2023-08-04 15:23] LABS: PT Prothrombin Time 15.9 SECONDS (9.5-12.5); PTT, Activated Partial Thromb 38.5 SECONDS (24.3-36.9); Protime INR 1.46
[2023-08-04 15:33] LABS: Anion Gap 13.3 mEq/L (5.0-15.0); Potassium 4.3 mEq/L (3.5-5.1)
--- NOTE | 2023-08-05 14:25 | EKG ---
Test Date: 2023-08-04 Test Time: 14:23:40 Foreclosure Clerk: AFTAB MEASUREMENT RESULTS: Intervals: Rate: 70 MA: 338 QRSD: 138 QT: 466 QTc: 503 [place]: P: 77 MA: 338 QRS: -61 T: 98 INTERPRETIVE STATEMENTS: Sinus rhythm with 1st degree AV block Right bundle branch block Left anterior fascicular block Bifascicular block Left ventricular hypertrophy with repolarization abnormality Cannot rule out Septal infarct, age undetermined Abnormal ECG Compared to ECG 12/20/2020 01:25:18 First degree AV block now present Myocardial infarct finding now present Atrial flutter no longer present Bifascicular block still present Electronically Signed On 08-05-23 14:23:12 CDT by Juan M Jackson
[2023-08-16] MEDS: NA CHLORIDE 0.9% 500 ML ONE (08:13)
[2023-08-16] MEDS ORDERED: HEPA 1000U/500MLS 2,000 UNIT/1,000 ML BAG IV ONE (09:51)
[2023-08-16] MEDS ORDERED: LIDOCAINE 1% 20 ML MDV ONE (09:51)
[2023-08-16] MEDS ORDERED: VERAPAMIL HCL 10 MG/4 ML VIAL IV ONE (09:51)
[2023-08-16] MEDS ORDERED: FENTANYL CITR 100 MCG/2 ML ONE (09:51)
[2023-08-16] MEDS ORDERED: HEPARIN 5000 UNIT/ML 1 ML VIAL ONE (09:52)
[2023-08-16] MEDS ORDERED: MIDAZOLAM HCL 2 MG/2 ML INJ ONE (09:52)
[2023-08-16] MEDS ORDERED: HEPARIN 10,000 UNIT/10 ML VIAL IV ONE (09:52)
[2023-08-16] MEDS ORDERED: ATROPINE SULF 1 MG/10 ML SYR IV ONE (09:52)
[2023-08-16] MEDS ORDERED: TICAGRELOR 90 MG TABLET PO ONE (09:52)
[2023-08-16] MEDS ORDERED: CLOPIDOGREL 75 MG TABLET ONE (09:53)
[2023-08-16] MEDS ORDERED: ASPIRIN 325 MG TAB ONE (09:53)
[2023-08-16 12:08] VITALS: O2SAT 100
[2023-08-16 14:25] VITALS: BP 101/44
--- NOTE | 2023-08-16 22:00 | OP ---
Date of Procedure: 08/16/2023 Surgeon: Olvin Luna Procedures Performed: 1.Left heart catheterization. 2.Coronary angiogram. 3.Bilateral carotid angiogram. Indication For Procedures: 1.Unstable angina with abnormal stress test. 2.Bilateral carotid artery disease on most recent carotid duplex. Complication Of Procedure: None. Estimated Blood Loss: Less than 50 cc. Access: Right common femoral artery, closed by Angio-Seal. Sedation Time: 40 minutes. Description Of Procedures: After risks, benefits, and alternatives were explained to the patient, alexandre howard agreed to proceed with procedure and signed informed consent. The patient was brought to the c ath lab and draped and prepped in a sterile fashion. Time-out was performed. Sedation was administe red. Then, we accessed the right common femoral artery using a 6-[place] micropuncture and advanced 6 -[place] sheath into the right common femoral artery without any problem. We advanced [place]allero catheter o marleen the J-wire to the right internal carotid artery where images were obtained and then, also we used to selectively engage the left internal carotid artery where images were obtained. After that, the catheter was exchanged with a JL4 catheter to the selective coronary angiogram of the left coronary s ystems. Then, it was exchanged over the J-wire over the JR4 catheter, was advanced to the LV cavity. LVEDP was obtained. Pullback did not show any gradient and we did a selective angiogram of the rig ht coronary system. At the end of the procedure, all catheters removed. Sheath was removed and acce ss was closed with Angio-Seal. The patient moved to Recovery in stable condition. Findings: 1.Right common carotid artery, distal 70% disease. 2.Left internal carotid artery, proximal 80% stenosis, then mild LI. 3.Left external carotid artery, proximal 70% disease, then mild LI. 4.Right common carotid artery patent. 5.Right internal carotid artery, proximal 30% disease. 6.Right external carotid artery patent. Coronary Angiogram Findin.Left main is normal. 2.LAD: Mild luminal irregularities. 3.Left Circumflex: Mild luminal irregularities. 4.RCA: Mild luminal irregularities. Assessment And Plan: 1.Significant left internal carotid artery disease. 2.Mild right internal carotid artery disease. 3.Normal coronaries. 4.Plan will be to consult Surgery to evaluate for endarterectomy of the internal carotid artery. MCCARTHY/RUY Voice ID: [id number] Report ID: [id number]
== END 2023-08-16 13:48 | disposition home or self-care (01) ==
LOC: CCL 08:08
PROVIDERS: ATTEND Internal Medicine
DX: I65.23 Occlusion and stenosis of bilateral carotid arteries (principal); I20.0 Unstable angina; R94.39 Abnormal result of other cardiovascular function study; I13.0 Hypertensive heart and chronic kidney disease with heart failure and stage 1 through stage 4 chronic kidney disease, or unspecified chronic kidney disease; I50.32 Chronic diastolic (congestive) heart failure; N18.30 Chronic kidney disease, stage 3 unspecified; I48.0 Paroxysmal atrial fibrillation; I45.2 Bifascicular block; I44.0 Atrioventricular block, first degree; E78.5 Hyperlipidemia, unspecified; K21.9 Gastro-esophageal reflux disease without esophagitis; M32.9 Systemic lupus erythematosus, unspecified; E66.01 Morbid (severe) obesity due to excess calories; Z68.42 Body mass index [BMI] 45.0-49.9, adult; Z79.01 Long term (current) use of anticoagulants; Z79.899 Other long term (current) drug therapy
CPT/HCPCS: 93005; 85025; 80048; 36415; 85610; 85730; 71046; 93458; 36222; 76937; C1893; Q9966; C1760; G0269; J2001; J2250; J3010; J7040; 99152; 99153; J0461; J1644